=== PATIENT | male | born 1985 | race Asian ===

== ENCOUNTER 2021-07-31 08:13 | Emergency (ER) | payer SELFPAY ==
[~2021-07-31] VITALS: Ht 172.7 cm; Wt 93.0 kg
[2021-07-31 08:13] VITALS: BP 131/94
[2021-07-31] MEDS ORDERED: LIDOCAINE 1% HCL (LOCAL ANESTH.) INJ 20ML MDV IJ ONE (09:15)
[2021-07-31] MEDS ORDERED: LIDO2SOL23 MT (09:22)
[2021-07-31] MEDS ORDERED: LIDOCAINE VISCOUS 2% 15ML UD PO ONE ×2 (09:31→09:45)
[2021-07-31] MEDS ORDERED: LIDOCAINE VISCOUS 2% 15ML UD ONE (09:31)
== END 2021-07-31 09:52 | disposition home or self-care (01) ==
LOC: ER 08:13
DX: J02.9 Acute pharyngitis, unspecified (principal); R07.89 Other chest pain; Z91.013 Allergy to seafood
CPT/HCPCS: 93005

== ENCOUNTER 2021-08-04 05:24 | Emergency (ER) | payer SELFPAY ==
[~2021-08-04] VITALS: Ht 172.7 cm; Wt 95.3 kg
[~2021-08-04 05:24] MED LIST: LIDO2SOL23 MT
[2021-08-04] MEDS ORDERED: AMOX-277 PO (08:11)
[2021-08-04] MEDS ORDERED: PRED20TA2 PO (08:11)
[2021-08-04] MEDS ORDERED: methylPREDNISolone SOD SUCC 125 MG/2 ML VL IM ONE (08:15)
[2021-08-04 08:24] VITALS: BP 123/95
== END 2021-08-04 08:44 | disposition home or self-care (01) ==
LOC: ER 05:30
DX: J02.9 Acute pharyngitis, unspecified (principal); Z91.013 Allergy to seafood
CPT/HCPCS: 96372; 99283; J2930

== ENCOUNTER 2022-08-20 06:52 | Emergency (ER) | payer SELFPAY ==
[~2022-08-20] VITALS: Ht 172.7 cm; Wt 95.5 kg
[~2022-08-20 06:52] MED LIST changes: +AMOX875T4 PO; -LIDO2SOL23 MT; +LIDO2SOL26 MT; +PRED20TA2 PO
[2022-08-20 07:22] VITALS: BP 127/78
[2022-08-20] MEDS ORDERED: AUG875T PO (08:05)
== END 2022-08-20 08:11 | disposition home or self-care (01) ==
LOC: ER 06:52
DX: H61.23 Impacted cerumen, bilateral (principal); H66.91 Otitis media, unspecified, right ear; Z91.013 Allergy to seafood
CPT/HCPCS: 69209